=== PATIENT | male | born 1970 | race Two or more races ===

== ENCOUNTER 2017-05-08 00:01 | Emergency (ER) | payer SELFPAY ==
[2017-05-08] MEDS ORDERED: Ketorolac 60 MG/2 ML SDV IM ONE (00:20)
--- NOTE | 2017-05-08 00:25 | EDM.PDOC ---
ED HPI GENERAL MEDICAL PROBLEM - General Chief Complaint: Skin Complaint Stated Complaint: PT HAS SPIDER BITE Time Seen by Provider: 05/08/17 00:12 - History of Present Illness INITIAL COMMENTS - FREE TEXT/NARRATIVE: HISTORY AND PHYSICAL: History of present illness: The patient is a 46-year-old male with no stated medical problems and who is up- to-date on his tetanus shot, 4 years ago, and presents with complaints of several areas where there are bites that he thought a spider bit him. He has one area on his volar surface of his right forearm and several bites near the trapezius on the right of his upper back. The patient denies any systemic complaints of fever chills chest pain shortness of breath nausea or vomiting and has no neurosensory changes in his arm. He says he is ambidextrous. He says he is not sure that a spider bit him because he did not see it but something did bite him. He says that it's very painful which is why he's here. He has no weakness in his extremity and otherwise has been acting appropriately going to work eating and drinking normally Review of systems: As per history of present illness and below otherwise all systems reviewed and negative. Past medical history: As per history of present illness and as reviewed below otherwise noncontributory. Surgical history: As per history of present illness and as reviewed below otherwise noncontributory. Social history: No reported history of drug or alcohol abuse. Family history: As per history of present illness and as reviewed below otherwise noncontributory. Physical exam: Gen.: Well-developed well-nourished man who is nontoxic and speaking clearly and easily in the ED. Vital signs have been reviewed by me. HEENT: Atraumatic, normocephalic, negative for conjunctival pallor or scleral icterus, mucous membranes moist, throat clear, neck supple, nontender, trachea midline. Lungs: Clear to auscultation, breath sounds equal bilaterally, chest nontender. Heart: S1S2, regular rate and rhythm no overt murmurs Abdomen: Soft, nondistended, nontender. NABS Pelvis: Deferred Genitourinary: Deferred. Rectal: Deferred. Extremities: Atraumatic, negative for cords or calf pain. Neurovascular unremarkable. Neuro: Awake, alert, oriented. Cranial nerves II through XII unremarkable. Cerebellum unremarkable. Motor and sensory unremarkable throughout. Exam nonfocal. Skin: At the right volar forearm there is a small circular area of erythema which is well demarcated with some central small lesions which are nonvesicular this it was some kind of bite. There is no streaking up the arm and no axillary adenopathy and the compartment of the forearm is soft. There is no distal neurosensory changes appreciated. At the right upper posterior back near the trapezius there are several well-demarcated circular raised areas consistent with bites and possibly an urticarial reaction but there is no streaking no muscle swelling or tenderness and no defects or skin breaks nor vesicular lesions. Please note that in all the areas of these lesions there is no fluctuance or drainage appreciated The remainder of the skin is without any lesions and there is normal turgor. Diagnostics: [] Therapeutics: Toradol The patient says he's concerned about the lesions on his right upper back because there are discomforting especially when he has to go to work. I told him that he will take OTC meds for the discomfort and I will write for some diclofenac he can also use. I will give him antibiotics Impression: Inset bites/cellulitis localized stable Definitive disposition and diagnosis as appropriate pending reevaluation and review of above. Right Shoulder Pain Score (Numeric/FACES): 4 - Related Data Allergies Allergy/AdvReac Type Severity Reaction Status Date / Time No Known Allergies Allergy Verified 05/08/17 00:08 Home Meds: Home Meds Acetaminophen [Tylenol] 325 mg PO DAILY 05/08/17 [History] Ibuprofen 200 mg PO DAILY 05/08/17 [History] Past Medical History HEENT History: Reports: None Cardiovascular History: Reports: None Respiratory History: Reports: None Gastrointestinal History: Reports: None Genitourinary History: Reports: None Musculoskeletal History: Reports: None Neurological History: Reports: None Psychiatric History: Reports: None Endocrine/Metabolic History: Reports: None Hematologic History: Reports: None Immunologic History: Reports: None Oncologic (Cancer) History: Reports: None Dermatologic History: Reports: None - Past Surgical History Head Surgeries/Procedures: Reports: None HEENT Surgical History: Reports: None Cardiovascular Surgical History: Reports: None Respiratory Surgical History: Reports: None GI Surgical History: Reports: Appendectomy Male Surgical History: Reports: None Endocrine Surgical History: Reports: None Neurological Surgical History: Reports: None Musculoskeletal Surgical History: Reports: None Oncologic Surgical History: Reports: None Dermatological Surgical History: Reports: None Social & Family History - Family History Family Medical History: Noncontributory - Tobacco Use Smoking Status *Q: Never Smoker - Caffeine Use Caffeine Use: Reports: None - Recreational Drug Use Recreational Drug Use: No ED ROS GENERAL - Review of Systems Review Of Systems: ROS reveals no pertinent complaints other than HPI. ED EXAM, SKIN/RASH Exam: See Below (See dictation) Course - Vital Signs Last Recorded V/S: Last Vital Signs Temp 37.1 C 05/08/17 00:09 Pulse 66 05/08/17 00:19 Resp 18 05/08/17 00:09 BP 138/75 05/08/17 00:09 Pulse Ox 95 05/08/17 00:09 - Orders/Labs/Meds Orders: Active Orders 24 hr Category Date Time Status Ketorolac [Toradol] Med 05/08/17 00:20 Once 60 mg IM ONETIME ONE Departure - Departure Time of Disposition: 00:24 Disposition: Home, Self-Care 01 Condition: Good Clinical Impression: Cellulitis Qualifiers: Site of cellulitis: extremity Site of cellulitis of extremity: upper extremity Laterality: right Qualified Code(s): L03.113 - Cellulitis of right upper limb Insect bite Qualifiers: Encounter type: initial encounter Qualified Code(s): W57.XXXA - Bitten or stung by nonvenomous insect and other nonvenomous arthropods, initial encounter - Discharge Information Referrals: PCP,None [Primary Care Provider] - Additional Instructions: The following information is given to patients seen in the emergency department who are being discharged to home. This information is to outline your options for follow-up care. We provide all patients seen in our emergency department with a follow-up referral. The need for follow-up, as well as the timing and circumstances, are variable depending upon the specifics of your emergency department visit. If you don't have a primary care physician on staff, we will provide you with a referral. We always advise you to contact your personal physician following an emergency department visit to inform them of the circumstance of the visit and for follow-up with them and/or the need for any referrals to a consulting specialist. The emergency department will also refer you to a specialist when appropriate. This referral assures that you have the opportunity for followup care with a specialist. All of these measure are taken in an effort to provide you with optimal care, which includes your followup. Under all circumstances we always encourage you to contact your private physician who remains a resource for coordinating your care. When calling for followup care, please make the office aware that this follow-up is from your recent emergency room visit. If for any reason you are refused follow-up, please contact the emergency department at and ask to speak to the emergency department charge nurse. [facility] Primary care- Internal Medicine and Family [address] [address] Please use [id number] Benadryl if the areas become itchy. Use medications as prescribed via [facility], diclofenac and Bactrim. Please call and follow-up with one of our clinic providers to reevaluate this care plan and her symptoms. You can call for an appointment tomorrow morning for sometime this week. Return to ER as needed and as discussed. The areas of infection have been marked and they may expand slightly before the antibiotics kick in and then they should contract. - My Orders Last 24 Hours: My Active Orders 05/08/17 00:20 Ketorolac [Toradol] 60 mg IM ONETIME ONE - Assessment/Plan Last 24 Hours: My Active Orders 05/08/17 00:20 Ketorolac [Toradol] 60 mg IM ONETIME ONE
== END 2017-05-08 00:49 | disposition home or self-care (01) ==
LOC: MW.ED 00:01
DX: S50.861A Insect bite (nonvenomous) of right forearm, initial encounter (principal); S20.461A Insect bite (nonvenomous) of right back wall of thorax, initial encounter; L03.113 Cellulitis of right upper limb; W57.XXXA Bitten or stung by nonvenomous insect and other nonvenomous arthropods, initial encounter
CPT/HCPCS: 96372; 99283; J1885; 99284